=== PATIENT | male | born 1965 | race Caucasian/White ===

== ENCOUNTER 2017-06-22 04:21 | Emergency (ER) | payer OTHER ==
[~2017-06-22] VITALS: Ht 172.7 cm; Wt 119.5 kg
[~2017-06-22 04:21] MED LIST: Ecotrin PO; LIDODERM 5% P1 PATCH TD; NO HOME MEDS; Percocet 5/325,Endoc PO
[2017-06-22 05:27] LABS: CHLORIDE 106 mEq/L (99-109); POTASSIUM 4.4 mEq/L (3.7-5.4); SODIUM 139 mEq/L (136-147)
[2017-06-22 05:29] LABS: GLUCOSE 112 mg/dL (70-99)
[2017-06-22 05:33] LABS: CREATININE 0.8 mg/dL (0.6-1.3); GFR ESTIMATE (CALCULATED) > 59 mL/min/ (58.99-99999)
[2017-06-22 05:34] LABS: UREA NITROGEN (BUN) 13 mg/dL (9-23)
[2017-06-22 05:54] LABS: HEMATOCRIT 47.2 % (38.0-50.0); HEMOGLOBIN 15.9 G/DL (12.5-16.6); MCH 33.8 PG (29.0-34.0); MCHC 33.7 G/DL (30.0-36.0); MCV 100.4 FL (86-99); PLATELET COUNT 255 K/uL (156-360); RBC DIS.WIDTH-CV 13.3 % (11.8-14.6); RBC DIS.WIDTH-SD 49.8 % (39-53); WHITE BLOOD COUNT 13.5 K/uL (4.1-10.2)
[2017-06-22] MEDS ORDERED: DOXYCYCLINE HY100 MG PO (06:45)
[2017-06-22] MEDS ORDERED: PREDNISONE20 MG PO (06:45)
[2017-06-22] MEDS ORDERED: ERYTHROMYC1 APPLICAT BOTH EYES (06:51)
[2017-06-22 07:16] VITALS: BP 145/83
== END 2017-06-22 07:19 | disposition home or self-care (01) ==
LOC: EME → EDBD 04:21 → EME 07:19
PROVIDERS: Emergency Medicine
DX: R29.810 Facial weakness (principal); H10.32 Unspecified acute conjunctivitis, left eye; R00.2 Palpitations; F17.200 Nicotine dependence, unspecified, uncomplicated; Z79.82 Long term (current) use of aspirin
CPT/HCPCS: 70450; 80048; 85027; 93005; 99281; 99285; J2930